=== PATIENT | female | born 1995 | race Two or more races ===

== ENCOUNTER 2023-05-20 07:13 | Inpatient (IN) | payer SELFPAY ==
[2023-05-20] VITALS (10 sets, daily range): BP systolic 89–115; BP diastolic 49–75; PULSE 72–159; RESP 12–16; TEMP 36.2–37.1; O2SAT 94–100; BMI 21.7
--- NOTE | 2023-05-20 07:43 | EKG12_ITS ---
Test Reason : PALPITATIONS Blood Pressure : / mmHG Vent. Rate : 149 BPM Atrial Rate : 298 BPM P-R Int : 000 ms QRS Dur : 068 ms QT Int : 292 ms P-R-T Axes : 000 074 -24 degrees QTc Int : 459 ms Critical Test Result: High HR Atrial flutter with 2:1 A-V conduction Nonspecific ST and T wave abnormality Abnormal ECG Confirmed by GIGI MOREAU, ROZ ([id number]), photo editor ISIAH CORDON ([id number]) on 05/22/2023 9:36:35 AM Referred By: LISSETTE Confirmed By:ROZ YU MD
--- NOTE | 2023-05-20 07:45 | EDS_ITS ---
HPI History of Present Illness Chief Complaint: Palpitations Detail of Chief Complaint: Tachycardia Informant: patient Narrative Narrative: Patient presents to the emergency department with racing heart that started yesterday. Initially she noted yesterday that her heart rate was in the 140s because her waiting can tell her heart rate. 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 She tells me she has history of an ablation about a year ago but cannot tell me the underlying rhythm. Patient not on any cardiac medications. This morning she woke up feeling weak and lightheaded and nauseated and called EMS to bring her in to get evaluated. She denies chest pain or shortness of breath. [facility] Medical History (Updated 05/20/23 @ 10:[address] Marco Ferraro, DO) History of brain tumor Home Medications escitalopram oxalate 10 mg tablet 10 mg PO DAILY 05/20/23 [History Last Taken 05/19/23] Allergy/AdvReac Type Severity Reaction Status Date / Time No Known Allergies Allergy Verified 05/20/23 07:18 Surgical History (Updated 05/20/23 @ 07:22 by Rolanda Escalona) H/O cardiac radiofrequency ablation Social History Smoking Status: Never smoker ROS ROS ED Review of Systems ROS Unobtainable: other Constitutional Constitutional ED: Reports lethargy; Denies chills, fever(s), sweats or weight loss Eyes Eyes: Denies blurry vision, change in vision or diplopia ENT ENT ED: Denies rhinorrhea or sore throat Cardiovascular Cardiovascular: Reports racing heartbeat; Denies chest pain or orthopnea Respiratory/Chest Respiratory/Chest: Denies cough, dyspnea, dyspnea on exertion, orthopnea or sputum Gastrointestinal Gastrointestinal: Reports diarrhea; Denies abdominal pain, nausea or vomiting Genitourinary Genitourinary ED: Denies dysuria, hematuria or urinary frequency Musculoskeletal Musculoskeletal: Denies arthralgias, back pain, myalgias or neck pain Integumentary Denies abscess, Abrasions or rash Neurologic Neurologic: Denies headache(s) or weakness Psychiatric Psychiatric: Denies anxiety, depression or suicidal thoughts Endocrine Endocrinology: Denies polydipsia, polyphagia or polyuria Hematologic/Lymphatic Hematologic/Lymphatic: Denies easy bleeding, easy bruising or lymphadenopathy Allergic/Immunologic Allergic/Immunologic ED: Denies mouth swelling, tongue swelling or urticaria EXAM Physical Exam Const Vital Signs: 05/20/23 07:18 05/20/23 07:22 05/20/23 07:25 Temperature 97.2 F L Temperature Source Oral Pulse Rate 159 H 94 Respiratory Rate 16 16 Respiratory Effort Normal Blood Pressure 100/73 101/74 Blood Pressure Mean 82 83 Pulse Ox 94 95 Oxygen Delivery Method Room Air Room Air 05/20/23 09:25 05/20/23 10:00 Temperature Temperature Source Pulse Rate 82 81 Respiratory Rate 14 16 Respiratory Effort Blood Pressure 98/72 96/64 Blood Pressure Mean 80 74 Pulse Ox 99 99 Oxygen Delivery Method Room Air Positive well nourished and well developed General Appearance ED: well developed and NAD HEENT Reports TM's clear and moist mucous membranes normocephalic and atraumatic; Negative for trauma or tenderness Tympanic Membrane ED: Yes TM's clear Eyes PERRL and EOMs intact bilaterally General Eye ED: Negative for pale conjunctiva or scleral icterus Neck no lymphadenopathy, supple and no JVD General: Negative for tenderness Chest Wall inspection of chest normal and palpation of chest normal Chest: Negative for tenderness Resp normal respiratory effort and clear to auscultation bilaterally Effort and Inspection: Negative for respiratory distress or pain with movement Auscultation: Negative for rhonchi, wheezes or diminished lung sounds Cardio regular rate, regular rhythm, S1 normal heart sound, S2 normal heart sound and no murmurs Peripheral Pulses: pulses 2+ throughout GI normal to inspection, nondistended, normoactive bowel sounds, soft to palpation, non-tender, non-distended and no masses Back/Spine no CVA tenderness and no thoracic nor lumbar tenderness Extremity normal to inspection General Extremety ED: Negative for edema General Extremity: Negative for edema Neuro oriented x3, CN's II-XII intact bilaterally, no sensory deficits noted and gait normal Sensorium / Orientation: awake, alert, oriented to person, oriented to place and oriented to time Motor Exam: strength 5/5 throughout and strength abnormal Psych mental status grossly normal Skin no rashes or lesions noted and no wounds MDM MDM MDM Narrative Medical decision making narrative: Patient presents with tachycardia with prior history of ablation. Initial EKG showed atrial flutter with 2-1 block and rate of 149 bpm. Before I could see the patient nursing staff stated that she now had a heart rate in the 80s and a repeat EKG showed a sinus rhythm. We will obtain lab work as she has had diarrhea for several days and then to evaluate electrolyte abnormalities. Will obtain troponin and D-dimer as well. CBC with differential obtained showed a white count of 11.1 with hemoglobin of 16 and platelet count of 252. Chemistries unremarkable. D-dimer was normal at less than 0.27. Troponin elevated 1333. hCG was negative. Case discussed with cardiology and will also discuss with hospitalist to evaluate patient for admission. Lab Data Attestation: I reviewed the patient's lab results. Labs: Laboratory Results - last 24 hr 05/20/23 07:30 WBC 11.1 H RBC 5.47 H Hgb 16.1 H Hct 49.8 H MCV 91.0 MCH 29.4 MCHC 32.3 RDW Std Deviation 42.3 RDW Coeff of Chad 12.7 Plt Count 252 MPV 9.6 Immature Gran % (Auto) 0.400 Neut % (Auto) 72.8 H Lymph % (Auto) 19.7 [place] % (Auto) 5.7 Eos % (Auto) 0.9 Baso % (Auto) 0.5 Absolute Neuts (auto) 8.1 H Absolute Lymphs (auto) 2.18 Nucleated RBC % 0 D-Dimer Quant (PE/DVT) < 0.27 L Sodium 139 Potassium 3.8 Chloride 104 Carbon Dioxide 28.0 Anion Gap 7 BUN 13 Creatinine 1.13 H Estim Creat Clear Calc 72.72 Est GFR (MDRD) Af Amer 74 Est GFR (MDRD) Non-Af 61 BUN/Creatinine Ratio 11.5 Glucose 134 H Calcium 9.9 Troponin I High Sens 1333 H* Serum , Qual NEGATIVE EKG Initial EKG: Attestation: I personally reviewed and interpreted this EKG as follows: Comments: Atrial flutter with rate of 149 with 2 1 block. Repeat EKG after patient heart rate dropped into the 80s shows a sinus rhythm with a rate of 90 bpm with no acute ST segment changes Prior EKG tracings: not available for review Discharge Plan Dx/Rx/DC Orders Clinical Impression: Atrial flutter, Elevated troponin Disposition Disposition: Acute Care [facility]
[2023-05-20] MEDS: 0.9% Normal Saline (1000mL) 1,000 ML 1000 ML IV (07:57)
[2023-05-20 08:02] LABS: Absolute Lymphocyte Count 2.18 X10^3/uL (0.83-4.51); Absolute Neutrophil Count 8.1 X10^3/uL (2.0-7.7); Basophil# 0.05 X10^3/uL; Basophil% 0.5 % (0-1); Eosinophils% 0.9 % (0-5); Hematocrit 49.8 % (37-47); Hemoglobin 16.1 g/dL (12.0-15.0); Lymphocyte # 2.18 X10^3/ul (0.83-4.51); Lymphocyte % 19.7 % (19-41); Mean Corp Hgb Conc 32.3 g/dL (32-36); Mean Corpuscular Hgb 29.4 pg (27.0-32.0); Mean Platelet Vol. 9.6 fl (6.2-12.0); Monocyte# 0.63 X10^3/uL; Monocyte% 5.7 % (0-10); NRBC Flagged by Analyzer 0 % (0-5); Neutrophil # 8.08 X10^3/uL (2.7-7.7); Neutrophil % 72.8 % (47-70); Platelet Count 252 K/mm3 (150-450); RBC Distribution Width CV 12.7 % (11.6-14.6); RBC Distribution Width SD 42.3 fl (35.1-43.9); Red Blood Count 5.47 M/mm3 (4.2-5.4); White Blood Count 11.1 K/mm3 (4.4-11.0)
[2023-05-20 08:07] LABS: Internal QC Validated? YES +Cl - CLEAR BKGD; Pregnancy, Serum, hCG Quali. NEGATIVE Negative
[2023-05-20 08:08] LABS: Record Kit Lot#, Serum Preg. HCG0000667200
[2023-05-20 08:21] LABS: D-Dimer Quantitative (DVT/PE) < 0.27 FEU/ug/m (0.27-0.49)
[2023-05-20 09:23] LABS: Anion Gap 7 (5-15); BUN 13 mg/dL (7-18); BUN/Creat Ratio 11.5 RATIO (10-20); Calcium,Total 9.9 mg/dL (8.5-10.1); Chloride 104 mmol/L (98-107); Creatinine, Serum 1.13 mg/dL (0.55-1.02); EST Glomerular Filtration Rate 61 mL/min (>60); Est Glom Filt Rate - Afr Amer 74 mL/min (>60); Estimated Creatinine Clearance 72.72 ml/min; Glucose 134 mg/dL (74-106); Potassium 3.8 mmol/L (3.5-5.1); Sodium Level 139 mmol/L (136-145); Troponin-I HS 1333 pg/mL (3.0-54.0)
[2023-05-20] MEDS: 0.9% Normal Saline (1000mL) 1,000 ML 150 ML IV (10:30)
--- NOTE | 2023-05-20 10:31 | HP.PCM_ITS ---
HPI - General General Date of Admission: 05/20/23 Date of Service: 05/20/23 Chief Complaint: palpitations HPI Narrative STEVIE OVERTON, is a 28 F with no signficant PMH who presents via the ED on 05/20/2023 with a complaint of palpitations. She is visiting from [place] and said she started having palpitations. She said her HR went up to the 140s, but she thought it would resolve. However, started feeling lightheaded and dizzy and felt her heart racing so she came in to the ED. She said she had an ablation done for suspected SVT in [place] last year. She denied any chest pain, shortness of breath or any other symptoms. Review of systems was otherwise negative. Vitals in the ED temp of 98.2F, OR of 85, BP of 115/75, RR of 12 and she was saturating at 97% on room air. CBC showed Hb of 16.1, wbc of 11.1, platelets of 252, and D dimer was <0.27. Chemistry was significant for 133 and trended up to a peak of 3655. She is being admitted for tachycardia, likely due to SVT and elevated troponin. [facility] Medical History (Updated 05/20/23 @ 10:[address] Marco Ferraro DO) History of brain tumor Medical History no medical history Home Medications escitalopram oxalate 10 mg tablet 10 mg PO DAILY depression/anxiety 05/20/23 [History Last Taken 05/19/23] pregabalina/tabagine 150 mg PO BID depresion/anxiety 05/20/23 [History Last Taken 05/20/23] Allergy/AdvReac Type Severity Reaction Status Date / Time No Known Allergies Allergy Verified 05/20/23 07:18 Surgical History H/O cardiac radiofrequency ablation Social History Smoking Status: Never smoker ROS Review of Systems ROS Unobtainable: Denies due to encephalopathy Constitutional Constitutional: Denies anorexia, chills, fatigue, fever(s), malaise or weakness ENT HEENT: Denies dysphagia or headache(s) Cardiovascular Cardiovascular: Reports palpitations; Denies chest pain, claudication, edema or paroxysmal nocturnal dyspnea Respiratory/Chest Respiratory/Chest: Denies cough, shortness of breath at rest, shortness of breath with exertion or wheezing Gastrointestinal Gastrointestinal: Denies abdominal pain, constipation, nausea or vomiting Genitourinary Genitourinary: Denies dysuria Musculoskeletal Musculoskeletal: Denies back pain, joint swelling or muscle weakness Integumentary Integumentary: Denies dry skin Neurologic Neurologic: Denies confusion, dizziness, focal weakness, headache(s) or seizures Psychiatric Psychiatric: Reports anxiety Vital Signs Vital Signs Vital Signs: 05/20/23 07:18 05/20/23 07:22 05/20/23 07:25 Temperature 97.2 F L Temperature Source Oral Pulse Rate 159 H 94 Respiratory Rate 16 16 Respiratory Effort Normal Blood Pressure 100/73 101/74 Blood Pressure Mean 82 83 Pulse Ox 94 95 Oxygen Delivery Method Room Air Room Air 05/20/23 09:25 05/20/23 10:00 Temperature Temperature Source Pulse Rate 82 81 Respiratory Rate 14 16 Respiratory Effort Blood Pressure 98/72 96/64 Blood Pressure Mean 80 74 Pulse Ox 99 99 Oxygen Delivery Method Room Air Weight Weight: 138 lb 14.259 oz Body Mass Index (BMI) 21.7 Physical Exam Const alert, oriented x3 and no apparent distress General Appearance: cooperative and well developed HEENT normocephalic, head/scalp atraumatic, moist oral mucous membranes and oropharynx normal Eyes PERRL and EOMs intact bilaterally Neck no lymphadenopathy and supple Lymph Lymphatic: no lymphadenopathy noted and no lymphedema noted Resp normal respiratory effort, normal air movement and clear to auscultation bilaterally Cardio regular rate, regular rhythm, S1 normal heart sound, S2 normal heart sound and no murmurs GI normal to inspection, nondistended, normoactive bowel sounds, soft to palpation, non-tender and non-distended Extremity normal capillary refill, no clubbing, cyanosis or edema and no calf tenderness General Extremity: no tenderness to palpation of joints or extremities Skin General Skin Exam: no breakdown Neuro CN's II-XII intact bilaterally, no focal motor deficits, no sensory deficits noted and deep tendon reflexes 2+ bilaterally Motor Exam: strength 5/5 throughout and general weakness Psych thought process normal, cooperative and affect normal Appearance: appropriate Results Lab / Micro Data 05/20/23 07:30 05/20/23 07:30 Labs: Laboratory Results - last 24 hr 05/20/23 07:30: WBC 11.1 H, RBC 5.47 H, Hgb 16.1 H, Hct 49.8 H, MCV 91.0, MCH 29.4, MCHC 32.3, RDW Std Deviation 42.3, RDW Coeff of Chad 12.7, Plt Count 252, MPV 9.6, Immature Gran % (Auto) 0.400, Neut % (Auto) 72.8 H, Lymph % (Auto) 1 9.7, [place] % (Auto) 5.7, Eos % (Auto) 0.9, Baso % (Auto) 0.5, Absolute Neuts (auto) 8.1 H, Absolute Lymphs (auto) 2.18, Nucleated RBC % 0, D-Dimer Quant (PE/DVT) < 0.27 L, Sodium 139, Potassium 3.8, Chloride 104, Carbon Dioxide 28.0, Anion Gap 7, BUN 13, Creatinine 1.13 H, Estim Creat Clear Calc 72.72, Est GFR (MDRD) Af Amer 74, Est GFR (MDRD) Non-Af 61, BUN/Creatinine Ratio 11.5, Glucose 134 H, Calcium 9.9, Troponin I High Sens 1333 H*, Serum , Qual NEGATIVE Assessment & Plan Assessment/Plan (1) Elevated troponin: (2) Atrial flutter: PLAN: Plan #Palpitations likely due to SVT * admitted with HR elevated at 159 * HR came down to normal limits on its own * troponins were also elevated at 133, and trended up to a peak of 3655. * consult cardiology * 2D echo ordered: * EKG showed probable atrial flutter with 2;1 block * per cardiology, to start on PO metoprolol 25mg bid * per cardiology, recommendation is to be considered for repeat ablation when she returns to [place] * #Elevated troponins * troponins elevated as above * may be troponin leak from tachycardia * 2D echo: showed EF of 65% with no regional wall motion abnormalities and structurally normal valves. * #ANxiety and depression: on escitalopram DVT prophylaxis: lovenox Charges/Coding Visit Charges Inpatient E&M: 58773 Init Hosp L3
--- NOTE | 2023-05-20 10:33 | ECHOD_ITS ---
Reason For Study: Arrhythmia Procedure This was a 2D Doppler, Color Flow transthoracic echocardiogram. Exam performed portable in patient room. Left Ventricle Normal LV size. Left ventricular systolic function is normal. The estimated ejection fraction is 65 %. No regional wall motion abnormalities noted. Right Ventricle Normal RV size. Normal systolic function. Atria Normal left atrium. Normal right atrium. Mitral Valve Normal mitral valve. Tricuspid Valve Normal tricuspid valve. Mild tricuspid valve insufficiency. Aortic Valve Normal aortic valve. Trisinus/trileaflet aortic valve. Pulmonic Valve Normal pulmonic valve. Great Vessels Normal aortic root. The pulmonary artery is normal size. Inferior vena cava collapse with respiration. Pericardium/Pleural No pericardial effusion. MMode/2D Measurements & Calculations LVIDd: 4.2 cm IVSd: 0.78 cm Ao root diam: 2.7 cm LVIDs: 2.5 cm LVPWd: 0.77 cm RVDd: 3.2 cm FS: 39.6 % LAV(MOD-bp): 17.9 ml LVAd ap4: 20.3 cm2 SV(MOD-sp4): 26.6 ml LAV(MOD-bp) Indexed: 10.6 ml/m2 LVLd ap4: 7.9 cm LAV(MOD-sp2): 21.5 ml EDV(MOD-sp4): 42.7 ml LAV(MOD-sp4): 14.5 ml EDV(sp4-el): 43.8 ml LVAs ap4: 11.0 cm2 LVLs ap4: 6.5 cm ESV(MOD-sp4): 16.1 ml ESV(sp4-el): 15.9 ml EF(MOD-sp4): 62.2 % EF(sp4-el): 63.8 % SV(sp4-el): 28.0 ml LA A4 area: 8.4 cm2 LA dimension(2D): 2.8 cm RA A4 area: 7.2 cm2 TAPSE: 1.9 cm Time Measurements MV dec time: 0.28 sec Doppler Measurements & Calculations MV E max nolan: 90.9 cm/sec Lat Peak E' Nolan: 14.5 cm/sec Med Peak E' Nolan: 12.7 cm/sec MV A max nolan: 58.1 cm/sec E/E' lat: 6.3 E/E' med: 7.2 MV E/A: 1.6 Ao V2 max: 111.0 cm/sec LV V1 max: 105.5 cm/sec MV dec slope: 321.4 cm/sec2 Ao max P.9 mmHg LV V1 max P.5 mmHg Ao V2 mean: 81.1 cm/sec Ao mean P.9 mmHg Ao V2 VTI: 18.2 cm PA V2 max: 97.7 cm/sec TR max nolan: 191.9 cm/sec TR max P.7 mmHg ECHO/Echo Complete Interpretation Summary Normal LV size. Left ventricular systolic function is normal. The estimated ejection fraction is 65 %. Structurally normal valves. Ordering Physician: Yamila Bates Performed By: Kaci Macedo, MIGUEL, RVT
--- NOTE | 2023-05-20 11:17 | PCM.CONS.C ---
Assessment & Plan Assessment/Plan (1) Atrial flutter: PLAN: She appears to have had an SVT ablation which is concurrent with her EKG presentation today which spontaneously abated. My recommendation is that she be considered for a repeat ablation when she gets back to [place]. In the meantime I would like to start her on metoprolol 25 mg twice a day and obtain an echocardiogram. (2) Elevated troponin: PLAN: She did have a troponin level obtained. I will recommend that we obtain an echocardiogram and then depending on the results further recommendations will be made. HPI Consult Data Date of Consult: 05/20/23 HPI Narrative HPI Narrative: STEVIE OVERTON, is a 28 F who presents with palpitations as well as near syncope. She is a lady with a previous history of a supraventricular tachyarrhythmia status post likely AV shannan ablation in [place] a few years ago. 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 She denies any chest pain but has had mild dizziness no diaphoresis and she says that she does drink a fair amount of coffee but does not think that she drank any more than usual. She has had no neck arm or jaw discomfort suggest angina she did not travel recently. Her EKG was noted to have a narrow complex tachycardia [facility] Medical History (Updated 05/20/23 @ 10:[address] Marco Ferraro DO) History of brain tumor Medical History no medical history no medical history Home Medications escitalopram oxalate 10 mg tablet 10 mg PO DAILY depression/anxiety 05/20/23 [History Last Taken 05/19/23] pregabalina/tabagine 150 mg PO BID depresion/anxiety 05/20/23 [History Last Taken 05/20/23] Allergy/AdvReac Type Severity Reaction Status Date / Time No Known Allergies Allergy Verified 05/20/23 07:18 Surgical History H/O cardiac radiofrequency ablation Social History Smoking Status: Never smoker ROS Constitutional Constitutional: Denies fever(s) or weight loss Eyes Eyes: Reports systems reviewed and no addt'l complaints, except as documented ENT HEENT: Reports systems reviewed and no addt'l complaints, except as documented Cardiovascular Cardiovascular: Denies chest pain at rest, chest pain with activity, dyspnea at rest, dyspnea on exertion, edema, palpitations or paroxysmal nocturnal dyspnea Respiratory/Chest Respiratory/Chest: Denies dyspnea on exertion, productive cough, shortness of breath at rest or shortness of breath with exertion Gastrointestinal Gastrointestinal: Denies change in bowel habits, nausea, vomiting or weight changes Genitourinary Genitourinary: Denies difficulty urinating Musculoskeletal Musculoskeletal: Denies joint stiffness or muscle weakness Integumentary Integumentary: Denies lesions Neurologic Neurologic: Denies dizziness or syncope Psychiatric Psychiatric: Denies anxiety Endocrine Endocrinology: Denies excessive sweating or fatigue Hematologic/Lymphatic Hematologic/Lymphatic: Denies anemia Allergic/Immunologic Allergic/Immunologic: Denies seasonal rhinorrhea Physical Exam Const alert, oriented x3 and no apparent distress General Appearance: cooperative HEENT hearing grossly normal bilaterally Head and Scalp: atraumatic Eyes EOMs intact bilaterally Neck General: normal visual inspection Chest inspection of chest normal and palpation of chest normal Resp normal respiratory effort Auscultation: clear to auscultation bilaterally Cardio regular rate, regular rhythm, S1 normal heart sound and S2 normal heart sound Jugular Venous Distention: JVD GI normal to inspection, nondistended, normoactive bowel sounds Extremity normal capillary refill and no pedal edema Peripheral Pulses: Yes pulses 2+ throughout and femoral pulses present Skin no rashes or lesions noted Neuro oriented x3 and CN's II-XII intact bilaterally Psych Appearance: grossly normal and appropriate Risk Stratification Risk Stratification Applicable: Yes Age >/= 65: No >/= 3 CAD Risk Factors (HTN, HLD, DM, family hx of CAD, or current smoker): No Aspirin Use in the Past 7 Days: No Severe Angina (>/= episodes in 24 hours): No EKG ST Changes >/= 0.5mm: No Positive Cardiac Marker: Yes RACHELLE Risk Stratification Score: 1 RACHELLE % Risk: 5% Risk Objective Data Vital Signs: Vital Signs Temp Pulse Resp BP Pulse Ox O2 Del Method 97.6 F L 76 14 96/64 99 Room Air 05/20/23 11:00 05/20/23 11:00 05/20/23 11:00 05/20/23 10:00 05/20/23 11:00 05/20/23 09:25 Oxygen Delivery Method Room Air Weight: 138 lb 14.259 oz Body Mass Index (BMI) 21.7 Lab / Micro Data 05/20/23 07:30 05/20/23 07:30 Labs: Laboratory Results - last 24 hr 05/20/23 07:30: WBC 11.1 H, RBC 5.47 H, Hgb 16.1 H, Hct 49.8 H, MCV 91.0, MCH 29.4, MCHC 32.3, RDW Std Deviation 42.3, RDW Coeff of Chad 12.7, Plt Count 252, MPV 9.6, Immature Gran % (Auto) 0.400, Neut % (Auto) 72.8 H, Lymph % (Auto) 19.7, [place] % (Auto) 5.7, Eos % (Auto) 0.9, Baso % (Auto) 0.5, Absolute Neuts (auto) 8.1 H, Absolute Lymphs (auto) 2.18, Nucleated RBC % 0, D-Dimer Quant (PE/DVT) < 0.27 L, Sodium 139, Potassium 3.8, Chloride 104, Carbon Dioxide 28.0, Anion Gap 7, BUN 13, Creatinine 1.13 H, Estim Creat Clear Calc 72.72, Est GFR (MDRD) Af Amer 74, Est GFR (MDRD) Non-Af 61, BUN/Creatinine Ratio 11.5, Glucose 134 H, Calcium 9.9, Troponin I High Sens 1333 H*, Serum , Qual NEGATIVE Cardiology Labs/Tests 05/20/23 07:30: WBC 11.1 H, RBC 5.47 H, Hgb 16.1 H, Hct 49.8 H, MCV 91.0, MCH 29.4, MCHC 32.3, Plt Count 252, MPV 9.6, Immature Gran % (Auto) 0.400, Neut % (Auto) 72.8 H, Lymph % (Auto) 19.7, [place] % (Auto) 5.7, Eos % (Auto) 0.9, Baso % (Auto) 0.5, Absolute Neuts (auto) 8.1 H, Nucleated RBC % 0, D-Dimer Quant (PE/DVT) < 0.27 L, Sodium 139, Potassium 3.8, Chloride 104, Carbon Dioxide 28.0, Anion Gap 7, BUN 13, Creatinine 1.13 H, Est GFR (MDRD) Af Amer 74, Est GFR (MDRD) Non-Af 61, BUN/Creatinine Ratio 11.5, Glucose 134 H, Calcium 9.9 Rhythm: EKG: ECHO: Stress Test: Cardiac Cath: PCI: CT Surgery: Holter monitor: EPS: PPM: CXR: Chest CT Scan:
[2023-05-20 12:03] LABS: Troponin-I HS 2674 pg/mL (3.0-54.0)
--- NOTE | 2023-05-20 12:29 | EKG12_ITS ---
Test Reason : PALPITATIONS Blood Pressure : / mmHG Vent. Rate : 090 BPM Atrial Rate : 090 BPM P-R Int : 148 ms QRS Dur : 070 ms QT Int : 362 ms P-R-T Axes : 052 080 043 degrees QTc Int : 442 ms Normal sinus rhythm Normal ECG Confirmed by GIGI MOREAU, ROZ ([id number]), school photograph editor ISIAH CORDON ([id number]) on 05/22/2023 9:37:13 AM Referred By: LISSETTE Confirmed By:ROZ YU MD
[2023-05-20 14:22] LABS: Troponin-I HS 3655 pg/mL (3.0-54.0)
[2023-05-20] MEDS: Metoprolol Tartrate 25 MG Tablet PO (14:51)
[2023-05-20] MEDS: Lansoprazole 15 MG Capsule.DR 30 MG PO ×2 (15:15→21:16)
[2023-05-20] MEDS: Mag Hydrox/Al Hydrox/Simeth 30 ML UDC PO (15:15)
[2023-05-21 03:42] VITALS: BP 99/56; PULSE 76; RESP 16; TEMP 36.7; O2SAT 98
[2023-05-21 07:20] LABS: Absolute Lymphocyte Count 1.92 X10^3/uL (0.83-4.51); Absolute Neutrophil Count 3.6 X10^3/uL (2.0-7.7); Basophil# 0.04 X10^3/uL; Basophil% 0.6 % (0-1); Eosinophil# 0.08 X10^3/uL; Eosinophils% 1.3 % (0-5); Hematocrit 39.9 % (37-47); Hemoglobin 12.4 g/dL (12.0-15.0); Lymphocyte # 1.92 X10^3/ul (0.83-4.51); Lymphocyte % 30.8 % (19-41); Mean Corp Hgb Conc 31.1 g/dL (32-36); Mean Corpuscular Hgb 29.2 pg (27.0-32.0); Mean Corpuscular Volume 93.9 fL (81-99); Mean Platelet Vol. 9.8 fl (6.2-12.0); Monocyte# 0.55 X10^3/uL; Monocyte% 8.8 % (0-10); NRBC Flagged by Analyzer 0 % (0-5); Neutrophil # 3.64 X10^3/uL (2.7-7.7); Neutrophil % 58.3 % (47-70); Platelet Count 210 K/mm3 (150-450); RBC Distribution Width CV 12.7 % (11.6-14.6); RBC Distribution Width SD 43.9 fl (35.1-43.9); Red Blood Count 4.25 M/mm3 (4.2-5.4); White Blood Count 6.2 K/mm3 (4.4-11.0)
[2023-05-21 08:18] LABS: Anion Gap 2 (5-15); BUN 13 mg/dL (7-18); BUN/Creat Ratio 15.4 RATIO (10-20); Calcium,Total 8.4 mg/dL (8.5-10.1); Chloride 110 mmol/L (98-107); Creatinine, Serum 0.84 mg/dL (0.55-1.02); EST Glomerular Filtration Rate 86 mL/min (>60); Est Glom Filt Rate - Afr Amer 104 mL/min (>60); Estimated Creatinine Clearance 98.31 ml/min; Glucose 83 mg/dL (74-106); Potassium 4.3 mmol/L (3.5-5.1); Sodium Level 139 mmol/L (136-145)
[2023-05-21 08:55] VITALS: BP 106/95; PULSE 88; RESP 18; TEMP 36.7; O2SAT 100
[2023-05-21] MEDS: Lansoprazole 15 MG Capsule.DR 30 MG PO (08:56)
[2023-05-21 08:58] VITALS: BP 106/95; PULSE 88
[2023-05-21] MEDS: Escitalopram Oxalate 10 MG Tablet PO (08:58)
[2023-05-21] MEDS: Metoprolol Tartrate 25 MG Tablet PO (08:58)
[2023-05-21] MEDS: Ibuprofen 400 MG Tablet PO (10:25)
--- NOTE | 2023-05-21 10:25 | PCM.PN.CARD ---
Subjective Subjective Patient seen and evaluated. Appears to be doing well this morning. No cardiac complaints. No further arrhythmias. Objective Data Vital Signs: Vital Signs Temp Pulse Resp BP Pulse Ox O2 Del Method 98.0 F 88 18 106/95 H 100 Room Air 05/21/23 08:55 05/21/23 08:58 05/21/23 08:55 05/21/23 08:58 05/21/23 08:55 05/21/23 08:55 Oxygen Delivery Method Room Air Weight: 136 lb 7.458 oz Body Mass Index (BMI) 20.0 Intake & Output: Intake and Output for Last 24 Hours 05/19/23 05/20/23 05/21/23 23:59 23:59 23:59 Intake Total 2890 / 3690 1300 / 1300 Balance 2890 / 3690 1300 / 1300 Lab / Micro Data 05/21/23 05:40 05/21/23 05:40 Labs: Laboratory Results - last 24 hr 05/20/23 10:25: Troponin I High Sens 2674 H* 05/20/23 13:30: Troponin I High Sens 3655 H* 05/21/23 05:40: WBC 6.2, RBC 4.25, Hgb 12.4, Hct 39.9, MCV 93.9, MCH 29.2, MCHC 31.1 L, RDW Std Deviation 43.9, RDW Coeff of Chad 12.7, Plt Count 210, MPV 9.8, Immature Gran % (Auto) 0.200, Neut % (Auto) 58.3, Lymph % (Auto) 30.8, [place] % (Auto) 8.8, Eos % (Auto) 1.3, Baso % (Auto) 0.6, Absolute Neuts (auto) 3.6, Absolute Lymphs (auto) 1.92, Nucleated RBC % 0, Sodium 139, Potassium 4.3, Chloride 110 H, Carbon Dioxide 27.0, Anion Gap 2 L, BUN 13, Creatinine 0.84, Estim Creat Clear Calc 98.31, Est GFR (MDRD) Af Amer 104, Est GFR (MDRD) Non-Af 86, BUN/Creatinine Ratio 15.4, Glucose 83, Calcium 8.4 L Cardiology Labs/Tests 05/21/23 05:40: WBC 6.2, RBC 4.25, Hgb 12.4, Hct 39.9, MCV 93.9, MCH 29.2, MCHC 31.1 L, Plt Count 210, MPV 9.8, Immature Gran % (Auto) 0.200, Neut % (Auto) 58.3, Lymph % (Auto) 30.8, [place] % (Auto) 8.8, Eos % (Auto) 1.3, Baso % (Auto) 0.6, Absolute Neuts (auto) 3.6, Nucleated RBC % 0, Sodium 139, Potassium 4.3, Chloride 110 H, Carbon Dioxide 27.0, Anion Gap 2 L, BUN 13, Creatinine 0.84, Est GFR (MDRD) Af Amer 104, Est GFR (MDRD) Non-Af 86, BUN/Creatinine Ratio 15.4, Glucose 83, Calcium 8.4 L Rhythm: EKG: ECHO: Stress Test: Cardiac Cath: PCI: CT Surgery: Holter monitor: EPS: PPM: CXR: Chest CT Scan: Radiography Diagnostic Testing: Radiology Impression Echocardiogram 05/20/23 10:33 Interpretation Summary Normal LV size. Left ventricular systolic function is normal. The estimated ejection fraction is 65 %. Structurally normal valves. Ordering Physician: Yamila Bates Performed By: Kaci Macedo, MIGUEL, RVT Physical Exam Const alert, oriented x3 and no apparent distress General Appearance: cooperative HEENT hearing grossly normal bilaterally Head and Scalp: atraumatic Eyes EOMs intact bilaterally Neck General: normal visual inspection Chest inspection of chest normal and palpation of chest normal Resp normal respiratory effort Auscultation: clear to auscultation bilaterally Cardio regular rate, regular rhythm, S1 normal heart sound and S2 normal heart sound Jugular Venous Distention: JVD GI normal to inspection, nondistended, normoactive bowel sounds Extremity normal capillary refill and no pedal edema Peripheral Pulses: Yes pulses 2+ throughout and femoral pulses present Skin no rashes or lesions noted Neuro oriented x3 and CN's II-XII intact bilaterally Psych Appearance: grossly normal and appropriate Assessment & Plan Assessment/Plan (1) Atrial flutter: PLAN: She appears to have had an SVT ablation which is concurrent with her EKG presentation today which spontaneously abated. My recommendation is that she be considered for a repeat ablation when she gets back to [place]. In the meantime I would like her to continue the metoprolol 25 mg twice a day. (2) Elevated troponin: PLAN: She did have a troponin level obtained. Echocardiogram demonstrated preserved ejection fraction with no wall motion abnormalities. EKG this morning demonstrates sinus rhythm with no acute changes. It appears that the troponin elevation was secondary to the supraventricular tachyarrhythmia. She can be discharged for outpatient follow-up. Thank you for allowing me to participate in the care of your patient. Please don't hesitate to call if any issues arise.
[2023-05-21] MEDS: Pregabalin 25 MG Capsule PO (11:03)
--- NOTE | 2023-05-21 12:06 | PCM.DC ---
Discharge Instructions Diet Discharge Diet: Low fat / Low cholesterol Activity Discharge Activity: Return to Normal Activity May resume sexual activity in: No Restrictions Weight Bearing Status: Weight bearing as tolerated Dressing / Incision Call your doctor if you observe: Fever of 101 or Higher, Shortness of breath, Dizziness, Swelling in the ankles, Chest pain and Increased palpitations (irregular heartbeat) Follow Up Care Test Results: Test results from this visit will be discussed in further detail at your follow-up appointment, if applicable. Discharge Plan Admission Admit Date/Time: 05/20/23 10:33 Primary Reason for Your Visit: palpitations Attending Provider: Yamila Bates Primary Care Provider: Bautista Palm,No Primary Consulting Providers: Andres Sol Instructions Patient Instructions: Supraventricular Tachycardia Additional Instructions / Restrictions: To follow up with her cardiologists in [place] to be evaluated for repeat ablation Discharge Orders/Prescriptions Prescriptions: New metoprolol tartrate 25 mg Tablet 25 mg PO BID Qty: 60 2RF Continued escitalopram oxalate 10 mg tablet 10 mg PO DAILY pregabalina/tabagine capsule 150 mg PO BID Patient Comments: takes two 75mg capsules twice a day Referrals / Follow Up: Care Physician,No Primary [Primary Care Provider] - [facility] Doctor,Out of [Non-Staff] - Disposition Disposition (needs filled in before D/C Order can be placed): Home, Self Care
[2023-05-21 12:13] VITALS: BP 106/95; PULSE 88; RESP 18; TEMP 36.7; O2SAT 100
--- NOTE | 2023-05-21 12:29 | DS.PCM_ITS ---
Providers Date of Admission: 05/20/23 Date of Discharge: 05/21/23 Primary Care Physician: Hanna Primary Care Phys Consultations 05/20/23 11:32 Consult: Cardiology Routine Consulting Provider: Andres Sol Reason for Consult: palpitations, elevated troponin EMERGENT Consult: No MD Notified: Yes Date Notified: 05/20/23 Time Notified: 10:34 Method of Notification: Verbal Reason For Visit: PALPITATIONS Diagnosis Discharge Diagnosis (1) Atrial flutter: Status: Acute Code(s): I48.92 - Unspecified atrial flutter (2) Elevated troponin: Status: Acute Code(s): R79.89 - Other specified abnormal findings of blood chemistry Plan #Palpitations likely due to SVT * admitted with HR elevated at 159 * HR came down to normal limits on its own * troponins were also elevated at 133, and trended up to a peak of 3655. * consult cardiology * 2D echo ordered: * EKG showed probable atrial flutter with 2;1 block * per cardiology, to start on PO metoprolol 25mg bid * per cardiology, recommendation is to be considered for repeat ablation when she returns to [place] * #Elevated troponins * troponins elevated as above * may be troponin leak from tachycardia * 2D echo: showed EF of 65% with no regional wall motion abnormalities and structurally normal valves. * #ANxiety and depression: on escitalopram DVT prophylaxis: lovenox Medications at Discharge Home Medications escitalopram oxalate 10 mg tablet 10 mg PO DAILY depression/anxiety 05/20/23 pregabalina/tabagine 150 mg PO BID depresion/anxiety 05/20/23 metoprolol tartrate 25 mg tablet 25 mg PO BID #60 tabs 05/21/23 Hospital Course Operations None Procedures 2-D Echocardiogram Summary of Care Provided Minutes Spent on Discharge: 55 Hospital Course: STEVIE RICOTeeKAITLIN, is a 28 F with no signficant PMH who presents via the ED on 05/20/2023 with a complaint of palpitations. She is visiting from [place] and said she started having palpitations. She said her HR went up to the 140s, but she thought it would resolve. However, started feeling lightheaded and dizzy and felt her heart racing so she came in to the ED. She said she had an ablation done for suspected SVT in [place] last year. She denied any chest pain, shortness of breath or any other symptoms. Review of systems was otherwise ne gative. Vitals in the ED temp of 98.2F, [place] of 85, BP of 115/75, RR of 12 and she was saturating at 97% on room air. CBC showed Hb of 16.1, wbc of 11.1, platelets of 252, and D dimer was <0.27. Chemistry was significant for 133 and trended up to a peak of 3655. She was admitted for tachycardia, likely due to SVT and elevated troponin. Cardiology was consulted. She was placed on metoprolol 25mg bid. Her troponins were cycled and trended upwards to a peak of 3655. She had 2D echo which showed normal LV systolic function and EF of 65%, with no regional wall motion abnormalities. Cardiolgy reviewed her and thought the elevated troponin was as a result of the tachycardia from SVT. Her tachycardia resolved and she tolerated metoprolol. She remained stable and cardiology recommended that she should follow up with her cardiologists in [place] for evaluation for repeat ablation. She remained stable and was discharged home on 05/21/2023. She is to follow up with her doctors in [place], where she will be returning within a few weeks. Patient seen and examined prior to discharge. She complained of anxiety. She denied any tachycardia or dizziness or lightheadedness. Review of systems otherwise negative. Labs and vitals reviewed. Home medication reviewed and reconciled. Physical Exam Const alert, oriented x3 and no apparent distress General Appearance: cooperative, comfortable, well kempt and well developed Orientation / Consciousness: awake HEENT normocephalic, head/scalp atraumatic, hearing grossly normal bilaterally, moist oral mucous membranes and oropharynx normal Mouth: oral and palatal mucosa normal Eyes PERRL, EOMs intact bilaterally and conjunctivae normal Neck no lymphadenopathy and supple Lymph Lymphatic: no lymphadenopathy noted and no lymphedema noted Resp normal respiratory effort, normal air movement and clear to auscultation bilaterally Cardio regular rate, regular rhythm, S1 normal heart sound, S2 normal heart sound and no murmurs GI normal to inspection, nondistended, normoactive bowel sounds, soft to palpation, non-tender and non-distended Extremity normal to inspection, full ROM, normal capillary refill, no clubbing, cyanosis or edema and no calf tenderness General Extremity: no tenderness to palpation of joints or extremities Skin no rashes or lesions noted and no wounds General Skin Exam: no breakdown Neuro oriented x3, CN's II-XII intact bilaterally, moves all extremities, no focal mo tor deficits, no sensory deficits noted and deep tendon reflexes 2+ bilaterally Sensorium / Orientation: awake Motor Exam: strength 5/5 throughout and general weakness Psych thought process normal, cooperative and affect normal Appearance: appropriate Weight / BMI Weight Weight: 136 lb 7.458 oz Body Mass Index (BMI) 20.0 ABG / Lab / Microbiology Data 05/21/23 05:40 05/21/23 05:40 Laboratory: Laboratory Results - last 24 hr 05/20/23 13:30: Troponin I High Sens 3655 H* 05/21/23 05:40: WBC 6.2, RBC 4.25, Hgb 12.4, Hct 39.9, MCV 93.9, MCH 29.2, MCHC 31.1 L, RDW Std Deviation 43.9, RDW Coeff of Chad 12.7, Plt Count 210, MPV 9.8, Immature Gran % (Auto) 0.200, Neut % (Auto) 58.3, Lymph % (Auto) 30.8, [place] % (Auto) 8.8, Eos % (Auto) 1.3, Baso % (Auto) 0.6, Absolute Neuts (auto) 3.6, Absolute Lymphs (auto) 1.92, Nucleated RBC % 0, Sodium 139, Potassium 4.3, Chloride 110 H, Carbon Dioxide 27.0, Anion Gap 2 L, BUN 13, Creatinine 0.84, Estim Creat Clear Calc 98.31, Est GFR (MDRD) Af Amer 104, Est GFR (MDRD) Non-Af 86, BUN/Creatinine Ratio 15.4, Glucose 83, Calcium 8.4 L Radiography Diagnostic Testing: Radiology Impression Echocardiogram 05/20/23 10:33 Interpretation Summary Normal LV size. Left ventricular systolic function is normal. The estimated ejection fraction is 65 %. Structurally normal valves. Ordering Physician: Yamila Bates Performed By: Kaci Macedo, MIGUEL, RVT D/C Instructions Discharge Diet: Low fat / Low cholesterol Discharge Activity: Return to Normal Activity May resume sexual activity in: No Restrictions Weight Bearing Status: Weight bearing as tolerated Call your doctor if you observe: Fever of 101 or Higher, Shortness of breath, Dizziness, Swelling in the ankles, Chest pain and Increased palpitations (irregular heartbeat) Meaningful Use Info Meaningful Use Diagnoses (Choose all that apply): None applicable Discharge Plan Admission Admit Date/Time: 05/20/23 10:33 Primary Reason for Your Visit: palpitations Attending Provider: Yamila Bates Primary Care Provider: Care Physician,No Primary Consulting Providers: Andres Sol Instructions Patient Instructions: Supraventricular Tachycardia Additional Instructions / Restrictions: To follow up with her cardiologists in [place] to be evaluated for repeat ablation Discharge Orders/Prescriptions Prescriptions: New metoprolol tartrate 25 mg Tablet 25 mg PO BID Qty: 60 2RF Continued escitalopram oxalate 10 mg tablet 10 mg PO DAILY pregabalina/tabagine capsule 150 mg PO BID Patient Comments: takes two 75mg capsules twice a day Referrals / Follow Up: Care Physician,No Primary [Primary Care Provider] - [facility] Doctor,Out of [Non-Staff] - Disposition Disposition (needs filled in before D/C Order can be placed): Home, Self Care Charges/Coding Visit Charges Inpatient E&M: 24823 Disch Hosp >30min
== END 2023-05-21 12:59 | disposition home or self-care (01) | DRG 310 ==
LOC: ED 10:22 → PCU 11:30
PROVIDERS: Admitting Provider Student in an Organized Health Care Education/Training Program; Emergency Provider Emergency Medicine; Visit Provider Student in an Organized Health Care Education/Training Program
DX: I47.10 Supraventricular tachycardia, unspecified (principal); I48.92 Unspecified atrial flutter; F32.A Depression, unspecified; R19.7 Diarrhea, unspecified; F41.9 Anxiety disorder, unspecified; R79.89 Other specified abnormal findings of blood chemistry; Z79.899 Other long term (current) drug therapy
CPT/HCPCS: 80048; 84484; 84703; 85025; 85379; 93005; 93306; 99285; J7030; A4216